=== PATIENT | male | born 1945 | race Caucasian/White ===

== ENCOUNTER → 2021-12-16 13:31 | Outpatient (CLI) | payer OTHER, SELFPAY ==
--- NOTE | 2021-12-16 14:01 | DI.US.S_ITS ---
PROCEDURE: US PERIPH VENOUS LOW EXTREM LT INDICATIONS: FOLLOW-UP DVT TECHNIQUE: Real-time imaging, as well as color and pulse Doppler interrogation, were performed of the lower extremity deep veins from the inguinal ligament to the popliteal fossa. COMPARISON: None. FINDINGS: Left lower extremity deep venous thrombosis is seen, with partially occlusive thrombus involving the proximal, mid, and distal aspects of the femoral vein, with occlusive thrombus seen within the popliteal vein. IMPRESSION: Extensive left lower extremity deep venous thrombosis is seen, including occlusive thrombus within the popliteal vein. Dictated by: Salvador Vidales M.D. on 12/16/2021 at 14:42 Approved by: Salvador Vidales M.D. on 12/16/2021 at 14:43
== END ==
PROVIDERS: Referring Provider Student in an Organized Health Care Education/Training Program; Visit Provider Student in an Organized Health Care Education/Training Program
DX: I82.412 Acute embolism and thrombosis of left femoral vein (principal); I82.432 Acute embolism and thrombosis of left popliteal vein
CPT/HCPCS: 93971

== ENCOUNTER → 2022-06-10 15:04 | Outpatient (CLI) | payer OTHER, SELFPAY | PROVIDERS: PCP Student in an Organized Health Care Education/Training Program; Referring Provider Orthopaedic Surgery; Visit Provider Orthopaedic Surgery | DX: Z01.818 Encounter for other preprocedural examination (principal) | CPT/HCPCS: 93005 ==

== ENCOUNTER 2022-06-26 07:45 | Day surgery (SDC) | payer OTHER, SELFPAY ==
[2022-06-06 12:03] VITALS: BMI 26.4
[2022-06-26 08:16] VITALS: BP 172/75; PULSE 69; RESP 16; TEMP 36.8; O2SAT 97; BMI 26.4
[2022-06-26] MEDS: LACTATED RINGERS 1,000 ML 42 ML IV ×2 (09:01→10:19)
--- NOTE | 2022-06-26 09:09 | PM.PREOP ---
Pre-operative Note Interval Note History & Physical reviewed/Exam performed by Physician: Yes Changes to H&P: No
[2022-06-26] MEDS: CEFAZOLIN 2 GM/100 ML PREMIX 100 ML IV (09:40)
--- NOTE | 2022-06-26 09:52 | SUR.OPER ---
Supine on padded OR bed, head on pillow, arms secured on padded arm boards at <90 degrees abduction, legs uncrossed, safety belt at thigh, tape over blanket over lower legs. Pt positioned per direction and supervision of Dr Reyes.
[2022-06-26] MEDS: BUPIVACAINE 0.5% W/ EPI (PF) 30 ML VIAL INJ (09:56)
[2022-06-26 10:40] VITALS: BP 149/93; PULSE 100; RESP 17; TEMP 36.7; O2SAT 95
--- NOTE | 2022-06-26 10:43 | P.OP_ITS ---
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 The surgery is once again discussed with the patient in remaining questions or concerns he had were answered to his full satisfaction. Patient was taken back to the operating theater and placed on the operating table in a supine position. Great care was taken to ensure that all bony prominences were appropriately padded. Well-padded tourniquet was placed up along the upper extremity and a time-out was performed verifying patient's name, procedure and operative site. The upper extremity was prepped and draped in the normal sterile fashion. And Esmarch was used to exsanguinate the limb and the tourniquet was turned up to 250 mmHg. Curvilinear incision was made centered over the radial aspect of the MCP joint. A 15 blade was used incise the skin and fascial tissue. Bipolar electrocautery was used to achieve hemostasis. Deep knife was then used to continued sharp dissection and the aponeurosis was split giving us a good visualization of the radial collateral ligament. Due to the poor nature of the ligamentous tissue a tendon graft was used. Small incision was made at the dist al wrist crease right over the palmaris longus. Fifteen blade was used to incise through skin and fascial tissue. Blunt dissection was performed until the palmaris longus was visualized. Second incision was made about 10 cm proximal over the palmaris longus and a small portion of the palmaris longus was harvested. Two drill holes were made 1 in the metacarpal 1 in the proximal phalanx. The tendon graft as well as suture material was tenodesed in the metacarpal. This was then taken across the joint and then tenodesed in the proximal phalanx providing a stabilization of the MCP joint. This got rid of the excess laxity to the MCP joint and help stabilize the joint. The wound was then copiously irrigated. Aponeurosis was closed in the rest of the wound was closed in a layered fashion. The hand was cleaned, dried, and dressed and patient was placed into a splint. Complications: none Post-operative Condition: stable Disposition: PACU Plan for aftercare: Patient will be immobilized in the splint for 2 weeks and then can be converted to a hand based splint that just immobilize the MCP joint of the thumb.
[2022-06-26 10:46] VITALS: BP 134/80; PULSE 87; RESP 16; O2SAT 95
[2022-06-26 10:51] VITALS: BP 135/78; PULSE 88; RESP 14; TEMP 36.4; O2SAT 95
[2022-06-26 10:56] VITALS: BP 126/71; PULSE 88; RESP 16; O2SAT 95
[2022-06-26 11:01] VITALS: BP 147/89; PULSE 91; RESP 16; TEMP 36.5; O2SAT 93
== END 2022-06-26 11:52 | disposition home or self-care (01) ==
PROVIDERS: Admitting Provider Anesthesiology; PCP Student in an Organized Health Care Education/Training Program; Referring Provider Orthopaedic Surgery; Visit Provider Orthopaedic Surgery
PROC: (CPT 26540; principal; 2022-06-26 09:15)
DX: S63.641A Sprain of metacarpophalangeal joint of right thumb, initial encounter (principal); X50.1XXA Overexertion from prolonged static or awkward postures, initial encounter; Y93.H3 Activity, building and construction; Y92.9 Unspecified place or not applicable; Y99.0 Civilian activity done for income or pay
CPT/HCPCS: 26541; C1713; J0690; J1100; J2250; J2405; J2704; J3010